=== PATIENT | male | born 1970 | race Caucasian/White ===

== ENCOUNTER 2016-11-01 18:00 | Emergency (ER) ==
--- NOTE | 2016-11-01 18:14 | ED.PDOC ---
General ED Provider: Dr. JUNO HUNTER JR Chief Complaint: Shoulder Pain/Injury Stated Complaint: missed a step and shoulder struck edge of door facing--pain to rightt shoulder--no other complaints--did not strike head--no loc[End]this morning 98.6 128 20 94 139/88 05/24 Time Seen by Physician: 18:13 Mode of Arrival: Wheelchair Information Source: Patient Exam Limitations: No limitations Primary Care Provider: GURWINDER SERVIN Nursing and Triage Documentation Reviewed and Agree: No Review of Systems - Review Of Systems Constitutional: Reports: No symptoms Eyes: Reports: No symptoms Ears, Nose, Mouth, Throat: Reports: No symptoms Respiratory: Reports: No symptoms Cardiac: Reports: No symptoms GI: Reports: No symptoms : Reports: No symptoms Musculoskeletal: Reports: Joint pain (right shoulder) Skin: Reports: Bruising Neurological: Reports: No symptoms Endocrine: Reports: No symptoms Hematologic/Lymphatic: Reports: No symptoms All Other Systems: Other Past Medical History - Past Medical History Previously Healthy: Yes Endocrine: Reports: None Cardiovascular: Reports: None Respiratory: Reports: None Hematological: Reports: None Gastrointestinal: Reports: None Genitourinary: Reports: None Neuro/Psych: Reports: None Musculoskeletal: Reports: None Cancer: Reports: None - Surgical History General Surgical History: Reports: None - Family History Family History: Reports: Unknown - Social History Smoking Status: Current every day smoker, Heavy tobacco smoker Hx Substance Use: No Alcohol Screening: Occasionally Physical Exam - Physical Exam Appearance: Well-appearing Pain Distress: Severe Eyes: YANCI, EOMI, Conjunctiva clear ENT: Ears normal, Nose normal, Oropharynx normal Neck: Supple Respiratory: Airway patent, Breath sounds clear, Breath sounds equal, Respirations nonlabored GI/: Soft, Nontender, No masses, Bowel sounds normal, No Organomegaly Musculoskeletal: Limited ROM (right shoulder) Skin: Warm, Dry, Normal color Neurological: Sensation intact, Motor intact, Reflexes intact, Cranial nerves intact, Alert, Oriented Psychiatric: Affect appropriate, Mood appropriate Interpretation - Radiology Interpretation Radiology Interpretation By: Radiologist Radiology Results: Positive Exam Interpreted: Other (HUMERUS IMPACTED AND COMMINUTED WITHOUT GLENOHUMERAL DISSOCIATION) - EKG Interpretation Time of EKG #1: 19:30 Rate: Tachy (117) Rhythm: Sinus Ectopy: None Graham: NL ST Segment: Normal Critical Care Note - Critical Care Note Total Time (mins): 0 Course - Course Orders, Labs, Meds: Orders Category Date Time Status EKG-(ED ONLY) Stat CARDIO 11/01/16 19:05 Completed ED SPLINT APPLICATION .ONCE EMERGENCY 11/01/16 18:18 Active Meperidine HCl/Pf [Demerol 50 mg/ml Syringe] MEDS 11/01/16 18:20 Discontinued 50 mg IM ONCE STA Meperidine HCl/Pf [Demerol 50 mg/ml Syringe] MEDS 11/01/16 19:38 Discontinued 50 mg IM ONCE STA Promethazine HCl [Phenergan 25 mg/ml Vial] MEDS 11/01/16 18:20 Discontinued 25 mg IM ONCE STA Promethazine HCl [Phenergan 25 mg/ml Vial] MEDS 11/01/16 19:38 Discontinued 25 mg IM ONCE STA SHOULDER, RIGHT MIN 2V Stat RADS 11/01/16 18:19 Completed Medications Discontinued Medications Generic Name Dose Route Start Last Admin Trade Name Freq PRN Reason Stop Dose Admin Meperidine HCl 50 mg 11/01/16 18:20 11/01/16 18:30 Demerol 50 Mg/Ml Syringe IM 11/01/16 18:21 50 mg ONCE STA Administration Meperidine HCl 50 mg 11/01/16 19:38 Demerol 50 Mg/Ml Syringe IM 11/01/16 19:39 ONCE STA Promethazine HCl 25 mg 11/01/16 18:20 11/01/16 18:33 Phenergan 25 Mg/Ml Vial IM 11/01/16 18:21 25 mg ONCE STA Administration Promethazine HCl 25 mg 11/01/16 19:38 Phenergan 25 Mg/Ml Vial IM 11/01/16 19:39 ONCE STA Vital Signs: Temp Pulse Resp BP Pulse Ox 11/01/16 18:01 98.6 F 128 H 20 139/88 94 L Departure - Departure Time of Disposition: 19:27 Disposition: HOME SELF-CARE Discharge Problem: Shoulder fracture, right Instructions: Proximal Humerus Fracture (ED) Condition: Stable Pt referred to PMD for follow-up: No (DELL NAVARRETE) Additional Instructions: FOLLOW UP DR DELL BLACK FOR PAIN , MAY TAKE WITH TYLENOL LIMIT TYLENOL TO LESS THAN 4000MG PER 24 HOURS ZOFRAN FOR NAUSEA MAY USE PHENERGAN INSTEAD OF ZOFRAN FOLLOW UP THURSDAY- CALL DR NAVARRETE OFFICE FOR TIME Dell Navarrete MD [id number] [place] [phone] Prescriptions: Hydrocodone/Acetaminophen [[place] 7.5-325 Tablet] 1 - 2 each PO QID PRN #30 tablet PRN Reason: Severe Pain Ondansetron HCl [Zofran Tab] 4 mg PO QID PRN #20 tablet PRN Reason: Nausea / Vomiting Promethazine HCl [Phenergan Tab] 25 mg PO QID PRN #12 tablet PRN Reason: Nausea / Vomiting Allergies/Adverse Reactions: Allergies No Known Allergies Allergy (Unverified 11/01/16 18:09) Home Medications: Ambulatory Orders Hydrocodone/Acetaminophen [[place] 7.5-325 Tablet] 1 - 2 each PO QID PRN #30 tablet 11/01/16 Ondansetron HCl [Zofran Tab] 4 mg PO QID PRN #20 tablet 11/01/16 Promethazine HCl [Phenergan Tab] 25 mg PO QID PRN #12 tablet 11/01/16
[2016-11-01] MEDS ORDERED: NORCO 5-325 PO STA (18:17)
[2016-11-01 18:20] VITALS: BP 139/88; TEMP 98.6; BMI 29.2
[2016-11-01] MEDS ORDERED: DEMEROL 50 MG/ML SYRINGE IM STA ×2 (18:20→19:38)
[2016-11-01] MEDS ORDERED: PHENERGAN 25 MG/ML VIAL IM STA ×2 (18:20→19:38)
--- NOTE | 2016-11-01 19:13 | DI ---
EXAM: Right shoulder, three views, 11/01/2016 HISTORY: Trauma. Bruising COMPARISON: None. FINDINGS / IMPRESSION: Comminuted displaced fracture is present at the level of the humeral head an d neck. There is subluxation of the humeral head relative to the humeral neck. No evidence of luma ohumeral dislocation. The remaining visualized osseous structures appear intact.
[2016-11-01] MEDS ORDERED: ZOFRAN 4 MG/2 ML IM STA (19:18)
== END 2016-11-01 20:11 | disposition home or self-care (01) ==
LOC: ED 18:00
DX: S42.201A Unspecified fracture of upper end of right humerus, initial encounter for closed fracture (principal); W10.9XXA Fall (on) (from) unspecified stairs and steps, initial encounter; F17.210 Nicotine dependence, cigarettes, uncomplicated
CPT/HCPCS: 93005; 93010; 96372; 99283